=== PATIENT | female | born 1945 | race Caucasian/White ===

== ENCOUNTER 2021-11-29 18:37 | Emergency (ER) | payer MEDICARE, SELFPAY ==
--- NOTE | ~2021-11-29 | CT_ITS ---
EXAMINATION: CT abdomen pelvis w con DATE: 11/29/2021 21:28 INDICATION: Left lower quadrant abdominal pain. TECHNIQUE: Computed tomography (CT) of the abdomen and pelvis was performed with 100 mL Omnipaque-350 intravenous contrast. Automated exposure control and iterative reconstruction technique were employe d. The dose-length product was 605.67 mGy-cm. COMPARISON: 02/16/2019 FINDINGS: Minimal atelectasis at the lingula. Heart size is normal. No pericardial or pleural effusion. Focal h epatic steatosis at the ligamentum teres. Subcentimeter low-attenuation cyst in the left hepatic lobe . There are few scattered hepatic and splenic calcific lesions consistent with old granulomatous dise ase. Multiple calcified gallstones in the dependent aspect of the otherwise normal-appearing gallblad nuha. Pancreas, bilateral adrenal glands and right kidney are normal. Couple stones at an inferior hitesh yx of the left kidney, the larger measuring 7 x 2 mm. There is mild colonic diverticulosis with a bud cending and sigmoid colon predominance. Prominent inflammatory stranding surrounding a diverticulum a t the junction of the descending and sigmoid colon consistent with diverticulitis. No abscess or free intraperitoneal gas or fluid. Small bowel and appendix are normal. Bladder, anteverted uterus and bi lateral adnexa are unremarkable. No pathologically enlarged abdominal or pelvic lymphadenopathy. Mode rate to severe spondylosis in the lumbar and lower thoracic spine. IMPRESSION: 1. Radiographically uncomplicated diverticulitis at the junction of the descending and sigmoid colon. 2. Cholelithiasis. 3. Nephrolithiasis the lower pole of the left kidney. Reviewed, dictated and finalized at location A. PAK MACHINE OPERATOR IMPRESSION: 1. Radiographically uncomplicated diverticulitis at the junction of the descend ing and sigmoid colon. 2. Cholelithiasis. 3. Nephrolithiasis the lower pole of the left kidney.
[2021-11-29 18:49] VITALS: BP 207/85; PULSE 98; RESP 14; TEMP 36.7; O2SAT 100
[2021-11-29 19:10] LABS: Basophils Percent Auto 0.4 % (0.2-1.2); Eosinophils Absolute Auto 0.1 K/mm3 (0-0.3); Eosinophils Percent Auto 0.8 % (0-4.4); Hematocrit 37.6 % (37.0-47.0); Hemoglobin 12.5 g/dL (12.0-15.0); Immature Granulocyte Absolute 0.03 K/mm3 (0.00-0.031); Immature Granulocyte Percent A 0.3 % (0-0.5); Lymphocytes Percent Auto 26.8 % (18.3-44.2); Mean Corpuscular HGB Conc 33.2 g/dl (32-36); Mean Corpuscular Hemoglobin 30.1 pg (26-34); Mean Corpuscular Volume 90.6 fl (80-100); Mean Platelet Volume 9.1 fl (7.4-10.4); Monocytes Absolute Auto 0.8 K/mm3 (0.1-0.6); Monocytes Percent Auto 8.5 % (2.6-8.5); Neutrophils Absolute Auto 5.7 K/mm3 (1.3-6.7); Neutrophils Percent Auto 63.2 % (45.5-73.1); Platelet Count Result 391 k/mm3 (150-375); Red Blood Count 4.15 M/mm3 (4.2-5.4); Red Cell Distribution Width 11.2 % (11.5-14.5)
[2021-11-29 19:21] LABS: Alanine Aminotransferase 21 U/L (4-35); Albumin Level 4.7 g/dL (3.5-5.1); Alkaline Phosphatase 94 U/L (38-126); Anion Gap 10 mmol/L (8-16); Aspartate Amino Transferase 32 U/L (14-36); Bilirubin,Total 0.8 mg/dL (0.2-1.3); Blood Urea Nitrogen 11 mg/dL (7-17); Calcium 9.1 mg/dL (8.4-10.2); Carbon Dioxide 27 mmol/L (22-30); Chloride 97 mmol/L (98-107); Estimated CRCL calculation 53 ml/min; Estimated Glomerular Filt Rate > 60; Glucose 129 mg/dL (65-110); Lipase 96 U/L (23-300); Sodium 134 mmol/L (137-145)
[2021-11-29 20:07] VITALS: BP 187/79; PULSE 88; RESP 20; TEMP 36.3; O2SAT 100
--- NOTE | 2021-11-29 20:38 | ED.ABDPAIN ---
HPI - Abdominal Pain General Chief Complaint: Abdominal Pain Stated Complaint: abdominal pain Time Seen by Provider: 11/29/21 20:19 Source: patient, RN notes reviewed and old records reviewed Mode of arrival: ambulatory Limitations: no limitations History of Present Illness HPI narrative: This is a 76 year old female with history of diverticulitis who presents for evaluation of left lower abdominal pain. Patient developed left lower abdominal pain on November 10 and she continued to have constant pain until yesterday. Her pain has completely resolved today. She has placed on her self on liquid diet for 3 weeks to address her pain. She denies nausea, vomiting, fever, chills, back pain, or urinary symptoms. She decided to come to ER today because she wanted to make sure she does not have diverticulitis. Related Data Allergies Allergy/AdvReac Type Severity Reaction Status Date / Time diphenhydramine Allergy Intermediate Unknown Verified 11/29/21 20:13 Penicillins Allergy Intermediate Unknown Verified 11/29/21 20:13 ampicillin Allergy Unknown Unknown Verified 11/29/21 20:13 codeine Allergy Unknown Unknown Verified 11/29/21 20:13 Quinolones Allergy Unknown Unknown Verified 11/29/21 20:13 Sulfa (Sulfonamide Allergy Unknown Unknown Verified 11/29/21 20:13 Antibiotics) EVERYTHING Allergy Intermediate Unknown Uncoded 11/29/21 20:13 CONTROL PILL Allergy Unknown Unknown Uncoded 11/29/21 20:13 Review of Systems Review of Systems: All systems reviewed & are unremarkable except as noted in HPI and below PMFSH Past Medical History Medical History (Updated 11/30/21 @ 00:00 by Nakul Larson) Diverticulitis Surgical History Surgical History (Updated 11/29/21 @ 20:42 by Meliza Farias MD) History of tonsillectomy Social History Social History (Updated 11/29/21 @ 20:42 by Meliza Farias MD) Smoking status: Never smoker Exam Const: General: no acute distress and alert Orientation/consciousness: patient oriented x3 Eyes: EOM: EOMs intact bilaterally Chest: Chest palpation & inspection: normal inspection of the chest Resp: Effort & Inspection: normal respiratory effort and no retractions Auscultation: clear to auscultation bilaterally Cardio: Rate: regular rate Rhythm: regular rhythm Heart sounds: no murmurs GI: GI Palp: Yes Soft to palpation, Yes Tenderness to palpation present (GI) (TTP LLQ) and No Guarding due to palpation present (GI) Auscultation: normal bowel sounds : General: Yes no CVA tenderness Skin: General skin exam: normal color Neuro: General: patient oriented x3 and moves all extremities Extrem: General: normal to inspection Psych: Mental Status: mental status grossly normal Affect: normal affect Course Reevaluation(s) Reevaluation #1: I have discussed with patient CT findings of diverticulitis. I also stressed to her to get follow up regarding her hypertension. On review of records, her BP has been elevated for a long time. She states it is only elevated when she is at hospital. I stressed she still needs to follow up . We also reviewed antibiotics. She reports allergic reaction to penicillin, ampicillin and levaquin. She will be placed on flagyl Date: 11/29/21 Time: 22:03 Vital Signs Vital signs: Vital Signs Temperature 98.1 F 11/29/21 18:49 Pulse Rate 98 11/29/21 18:49 Respiratory Rate 14 11/29/21 18:49 Blood Pressure 207/85 H 11/29/21 18:49 Pulse Oximetry 100 11/29/21 18:49 Temperature 97.9 F 11/29/21 22:18 Pulse Rate 76 11/29/21 22:18 Respiratory Rate 16 11/29/21 22:18 Blood Pressure 132/76 11/29/21 22:18 Pulse Oximetry 98 11/29/21 22:18 MDM - Abdominal Pain Medical Records Attestation: I reviewed the patient's medical records. Lab Data Attestation: I reviewed the patient's lab results. Result diagrams: 11/29/21 19:01 11/29/21 19:01 Labs: Lab Results 11/29/21
[2021-11-29 20:52] LABS: Add Urine Microscopic? YES; Appearance Urine Clear (Clear); Bacteria Urine Trace /hpf; Bilirubin Urine Negative (Negative); Blood Urine 1+ (Negative); Color Urine Straw (Yellow); Glucose Urine UA Negative (Negative); Ketones Urine 1+ mg/dL (Negative); Leukocyte Esterase Ur Trace LEU/UL (Negative); Mucus Urine Rare /lpf; Nitrate Urine Negative (Negative); Protein Urine Negative (Negative); RBC Urine 0-2 /hpf (0-2); Specific Grav Ur 1.003 (1.001-1.035); Squamous Epithelial Cell Urine Occasional /hpf (Few); Urobilinogen Urine Negative mg/dL (<2.0); WBC Urine 0-3 /hpf
[2021-11-29] MEDS: metroNIDAZOLE 250 MG TABLET 500 MG PO (22:09)
[2021-11-29 22:18] VITALS: BP 132/76; PULSE 76; RESP 16; TEMP 36.6; O2SAT 98
== END 2021-11-29 22:21 | disposition home or self-care (01) ==
PROVIDERS: Emergency Medicine; Emergency Provider General Practice; PCP Nurse Practitioner Family
DX: K57.32 Diverticulitis of large intestine without perforation or abscess without bleeding (principal); K80.20 Calculus of gallbladder without cholecystitis without obstruction; N20.0 Calculus of kidney
CPT/HCPCS: 36415; 74177; 80053; 81001; 83690; 85025; 99284; A9270; Q9967

== ENCOUNTER 2022-05-14 10:28 | Inpatient (IN) | payer MEDICARE, SELFPAY ==
[2022-05-14] VITALS (63 sets, daily range): BP systolic 90–180; BP diastolic 54–99; PULSE 76–103; RESP 15–36; TEMP 36.7–38; O2SAT 42–100; BMI 35.6
--- NOTE | ~2022-05-14 | XR_ITS ---
EXAMINATION: XR chest 1V portable DATE: 05/15/2022 05:51 INDICATION: Pulmonary edema. Cardiomegaly. TECHNIQUE: A single frontal view of the chest was obtained. COMPARISON: Chest single view 05/14/2022 FINDINGS: There are airspace opacities in all lung zones bilaterally. No pleural effusion or pneumoth orax. The heart size is normal. IMPRESSION: 1. Improved diffuse lung disease, likely moderate pulmonary edema. Pneumonia is less likely. Reviewed, dictated and finalized at location A.
--- NOTE | ~2022-05-14 | XR_ITS ---
EXAMINATION: XR chest 1V portable DATE: 05/16/2022 05:43 INDICATION: Pulmonary edema. TECHNIQUE: A single frontal view of the chest was obtained. COMPARISON: Chest single view 05/15/2022 FINDINGS: There is a diffuse interstitial pattern in the lungs, consistent with mild pulmonary edema. No pleural effusion or pneumothorax. The heart size is normal. IMPRESSION: 1. Improved mild pulmonary edema. Reviewed, dictated and finalized at location A.
--- NOTE | ~2022-05-14 | CT_ITS ---
EXAMINATION: CT abdomen pelvis wo con DATE: 05/16/2022 10:45 INDICATION: Abdominal pain. Kidney stones. Urinary tract infection and fever. TECHNIQUE: Computed tomography (CT) of the abdomen and pelvis was performed without intravenous contr ast. Automated exposure control and iterative reconstruction technique were employed. The dose-length product was 958.51 mGy-cm. COMPARISON: 11/29/2021 FINDINGS: Very small bilateral posterior layering pleural effusions. Patchy groundglass opacities in the depend ent aspect of the bilateral lower lobes and lingula which could represent atelectasis, mild pulmonary edema, aspiration or pneumonia. Heart size is normal. Small pericardial effusion. Aortic valve calci fication. A few small calcified nodules in the liver and spleen consistent with old granulomatous dis ease. Calcified gallstones as well as vicariously excreted contrast versus sludge in the dependent as pect of the otherwise normal gallbladder. Pancreas, bilateral adrenal glands and right kidney are nor mal. 6 x 2 mm stone versus cluster of stones in an inferior calyx of the left kidney. No hydronephros is or stones seen along the course of ureters. Luong catheter within the decompressed bladder. Anteve rted uterus and bilateral adnexa are unremarkable. There is moderate colonic diverticulosis with a si gmoid predominance. There is no adjacent inflammatory change to suggest diverticulitis. Small bowel a nd appendix are normal. No free intraperitoneal gas or fluid. No pathologically enlarged abdominal or pelvic lymphadenopathy. Moderate to severe lumbar and lower thoracic spondylosis. IMPRESSION: 1. Unchanged nonobstructing 6 x 2 mm stone/cluster of stones in an inferior calyx of the left kidney. No ureteral stones or hydronephrosis. 2. Cholelithiasis. 3. Diverticulosis. Reviewed, dictated and finalized at location A. IMPRESSION: 1. Unchanged nonobstructing 6 x 2 mm stone/cluster of stones in an inferior hitesh yx of the left kidney. No ureteral stones or hydronephrosis. 2. Cholelithiasis. 3. Diverticulosis.
--- NOTE | ~2022-05-14 | US_ITS ---
EXAMINATION: US abdomen limited DATE: 05/15/2022 16:32 INDICATION: Elevated liver function tests TECHNIQUE: Multiple grayscale and Doppler ultrasound images of the abdomen were obtained. COMPARISON: CT dated 11/29/2021 FINDINGS: The pancreatic head and body are normal in appearance. The pancreatic tail is not visualized. Visual ized proximal to mid aorta and inferior vena cava are normal. Liver has normal echogenicity and conto ur, with a smooth surface. No liver lesion identified. No intrahepatic biliary duct dilation suspecte d. Portal venous flow was seen in the hepatopetal, normal direction and has normal Doppler waveform. Several echogenic and shadowing gallstones along the dependent wall of the otherwise normal gallbladd er. The common bile duct measures 8 mm diameter which is mildly dilated for age and which appears new since the prior CT at which time the common bile duct measures 11 mm in maximal diameter. Sonographi c Graves sign was reported as negative by the waste oil pumper although patient was reportedly on analgesi cs which could result in a false negative interpretation. Visualized portion of the right kidney demo nstrates normal contour and echogenicity with no hydronephrosis. IMPRESSION: 1. Cholelithiasis with no evident gallbladder wall thickening and with negative sonographic Graves si gn although sensitivity for the latter is decreased as the patient was reportedly been taking analges ics. If there is clinical concern for acute cholecystitis could consider HIDA scan for further evalua tion. 2. Common bile duct is mildly dilated for age measuring 8 mm which appears new since the prior CT but without associated intrahepatic biliary ductal dilation. Could consider MRCP to assess for a nonvisu alized distal obstructing stone. Reviewed, dictated and finalized at location A. IMPRESSION: 1. Cholelithiasis with no evident gallbladder wall thickening and with negative sonographic Graves sign although sensitivity for the latter is decreased as th e patient was reportedly been taking analgesics. If there is clinical concern f or acute cholecystitis could consider HIDA scan for further evaluation. 2. Common bile duct is mildly dilated for age measuring 8 mm which appears new since the prior CT but without associated intrahepatic biliary ductal dilation. Could consider MRCP to assess for a nonvisualized distal obstructing stone.
--- NOTE | ~2022-05-14 | XR_ITS ---
EXAMINATION: XR chest 1V portable DATE: 05/14/2022 11:16 INDICATION: Chest pain. TECHNIQUE: A single frontal view of the chest was obtained. COMPARISON: Chest 2 views 11/28/15, CT abdomen and pelvis 11/29/2021 FINDINGS: There is mild atelectasis in right lower lung zone and left mid and lower lung zones. No pl eural effusion or pneumothorax. The heart size is normal. IMPRESSION: 1. Mild atelectasis in right lower lung zone and left mid and lower lung zones. Reviewed, dictated and finalized at location A.
--- NOTE | ~2022-05-14 | US_ITS ---
EXAMINATION: US venous doppler [facility] DATE: 05/17/2022 11:33 INDICATION: TECHNIQUE: Grayscale ultrasound images without and with compression and Doppler ultrasound images of the bilateral lower extremity veins were obtained. COMPARISON: None. FINDINGS: The visualized portions of right common femoral vein, profunda (deep) femoral vein, femoral vein, pop liteal vein, posterior tibial veins, peroneal veins, gastrocnemius vein, soleal vein and greater saph enous vein outflow are patent. The visualized portions of left common femoral vein, profunda femoral vein, femoral vein, popliteal v ein, posterior tibial veins, peroneal veins, gastrocnemius vein, soleal vein and greater saphenous ve in outflow are patent. IMPRESSION: 1. No deep venous thrombosis in either lower limb. Reviewed, dictated and finalized at location A.
--- NOTE | ~2022-05-14 | XR_ITS ---
EXAMINATION: XR abdomen/kub 1V INDICATION: Possible foreign body TECHNIQUE: Supine views of the abdomen were obtained on 2 radiographs. COMPARISON: None FINDINGS: No radiopaque foreign body is identified. Cholelithiasis is noted. The bowel gas pattern is unremarkable. IMPRESSION: 1. No radiopaque foreign body identified. Reviewed, dictated and finalized at location B.
--- NOTE | ~2022-05-14 | XR_ITS ---
EXAMINATION: XR chest 1V portable DATE: 05/14/2022 13:19 INDICATION: Respiratory distress. TECHNIQUE: A single frontal view of the chest was obtained. COMPARISON: Chest single view at 11:12 AM FINDINGS: There are airspace opacities in all lung zones bilaterally. Andreea B-lines are noted. No pl eural effusion or pneumothorax. The heart size is normal. IMPRESSION: 1. Worsened diffuse lung disease, likely moderate pulmonary edema. Pneumonia is less likely given the symmetry and short interval change. Reviewed, dictated and finalized at location A.
--- NOTE | 2022-05-14 10:59 | ECG_ITS ---
Measurements Intervals [place] Rate: 102 P: 49 [place]: 134 QRS: -31 QRSD: 92 T: 79 QT: 348 QTc: 455 Interpretive Statements SINUS TACHYCARDIA POSSIBLE LEFT ATRIAL ENLARGEMENT [-0.1mV P WAVE IN V1/V2] MARKED LEFT AXIS DEVIATION [QRS AXIS < -30] PATTERN CONSISTENT WITH PULMONARY DISEASE POSSIBLE LEFT VENTRICULAR HYPERTROPHY [VOLTAGE CRITERIA PLUS LAE OR QRS WIDENING] MARKED ST ELEVATION, CONSIDER LATERAL INJURY [MARKED ST ELEVATION W/O NORMALLY INFLECTED T WAVE IN I/aVL/V5/V6] ACUTE MD NO PREVIOUS ECG AVAILABLE FOR COMPARISON Electronically Signed On 05-14-2022 15:13:36 CDT by Maddy Vargas M.D.
[2022-05-14 11:07] LABS: Basophils Absolute Auto 0.1 K/mm3 (0.0-0.1); Basophils Percent Auto 0.4 % (0.2-1.2); Eosinophils Percent Auto 0.2 % (0-4.4); Hematocrit 41.8 % (37.0-47.0); Hemoglobin 13.8 g/dL (12.0-15.0); Immature Granulocyte Absolute 0.05 K/mm3 (0.00-0.031); Immature Granulocyte Percent A 0.4 % (0-0.5); Lymphocytes Absolute Auto 2.05 K/mm3 (0.9-3.2); Mean Corpuscular Hemoglobin 30.7 pg (26-34); Mean Corpuscular Volume 93.1 fl (80-100); Mean Platelet Volume 9.9 fl (7.4-10.4); Monocytes Absolute Auto 0.6 K/mm3 (0.1-0.6); Monocytes Percent Auto 4.2 % (2.6-8.5); Neutrophils Absolute Auto 10.9 K/mm3 (1.3-6.7); Neutrophils Percent Auto 79.8 % (45.5-73.1); Platelet Count Result 370 k/mm3 (150-375); Red Blood Count 4.49 M/mm3 (4.2-5.4); Red Cell Distribution Width 11.6 % (11.5-14.5); White Blood Count 13.7 K/mm3 (4.5-10.0)
[2022-05-14 11:19] LABS: Prothrombin Time 13.1 Seconds (11.1-14.7)
[2022-05-14 11:20] LABS: Partial Thromboplastin Time 27.9 SECONDS (22.3-36.8)
--- NOTE | 2022-05-14 11:21 | ED.CHESTPAIN ---
HPI - Chest Pain General Chief Complaint: Chest Pain Stated Complaint: FB GI? Source: patient and family Mode of arrival: ambulatory Limitations: no limitations History of Present Illness HPI narrative: 76 years old white female came from home with a chief complaint of chest pain that started 2 weeks ago gradually getting worse. Patient believes that she swallowed a bone 2 weeks ago and has been having dry heaves and vomiting since. Patient not on any medication at home, denies any history of diabetes, hypertension, hyperlipidemia or coronary artery disease. Related Data Allergies Allergy/AdvReac Type Severity Reaction Status Date / Time diphenhydramine Allergy Intermediate Unknown Verified 05/14/22 10:53 Penicillins Allergy Intermediate Unknown Verified 05/14/22 10:53 ampicillin Allergy Unknown Unknown Verified 05/14/22 10:53 codeine Allergy Unknown Unknown Verified 05/14/22 10:53 Quinolones Allergy Unknown Unknown Verified 05/14/22 10:53 Sulfa (Sulfonamide Allergy Unknown Unknown Verified 05/14/22 10:53 Antibiotics) EVERYTHING Allergy Intermediate Unknown Uncoded 05/14/22 10:53 CONTROL PILL Allergy Unknown Unknown Uncoded 05/14/22 10:53 Review of Systems Review of Systems: All systems reviewed & are unremarkable except as noted in HPI and below PMFSH Past Medical History Medical History Diverticulitis Surgical History Surgical History History of tonsillectomy Social History Social History Smoking status: Never smoker Exam Narrative: General appearance: Well-developed, well-nourished Skin:, diaphoretic, pale Head: Normocephalic, nontraumatic Eyes: Clear conjunctiva ENT: Oropharynx normal, ears normal, nose normal Neck: Supple, nontender Chest and respiratory: Airway patent, no respiratory distress, no accessory muscle use Heart: Regular rate/rhythm Abdomen: Soft, nontender, no organomegaly, quiet bowel sounds Vascular: Normal peripheral pulses, normal capillary refill. Musculoskeletal: Normal range of motion, nontender back Neurologic: Alert and oriented ?3, TRANSMISSIONS SYSTEMS OPERATOR is normal as tested, no gross motor deficit Course Reevaluation(s) Reevaluation #1: Dr. cadena, mash tub cooker operator on-call, was notified, Date: 05/14/22 Time: 11:27 Vital Signs Vital signs: Vital Signs Temperature 36.7 C 05/14/22 10:33 Pulse Rate 100 05/14/22 10:33 Respiratory Rate 20 05/14/22 10:33 Blood Pressure 180/95 H 05/14/22 10:33 Pulse Oximetry 100 05/14/22 10:33 Oxygen Delivery Room Air 05/14/22 10:33 Temperature 36.7 C 05/14/22 10:33 Pulse Rate 100 05/14/22 10:33 Respiratory Rate 20 05/14/22 10:33 Blood Pressure 180/95 H 05/14/22 10:33 Pulse Oximetry 94 05/14/22 11:12 Oxygen Delivery Room Air 05/14/22 11:12 MDM - Chest Pain Lab Data Result diagrams: 05/14/22 11:01 05/14/22 11:01 Labs: Lab Results 05/14/22 05/14/22 05/14/22 Range/Units 11:01 11:01 11:01 WBC 13.7 H (4.5-10.0) K/mm3 RBC 4.49 (4.2-5.4) M/mm3 Hgb 13.8 (12.0-15.0) g/dL Hct 41.8 (37.0-47.0) % MCV 93.1 (80-100) fl MCH 30.7 (26-34) pg MCHC 33.0 (32-36) g/dl RDW 11.6 (11.5-14.5) % Plt Count 370 (150-375) k/mm3 MPV 9.9 (7.4-10.4) fl Immature Gran % (Auto) 0.4 (0-0.5) % Neut % (Auto) 79.8 H (45.5-73.1) % Lymph % (Auto) 15.0 L (18.3-44.2) % Mcmullen % (Auto) 4.2 (2.6-8.5) % Eos % (Auto) 0.2 (0-4.4) % Baso % (Auto) 0.4 (0.2-1.2) % Lymph # (Auto) 2.05 (0.9-3.2) K/mm3 Mon
[2022-05-14] MEDS: METOPROLOL TARTRATE INJ 5 MG/5 ML VIAL IV PUSH ×2 (11:29→11:47)
[2022-05-14] MEDS: MORPHINE SULFATE (*CRX) 4 MG/ML INJ IV PUSH (11:33)
[2022-05-14 11:35] LABS: Alanine Aminotransferase 27 U/L (6-35); Albumin Level 4.7 g/dL (3.5-5.1); Alkaline Phosphatase 89 U/L (38-126); Anion Gap 18 mmol/L (8-16); Aspartate Amino Transferase 37 U/L (14-36); Bilirubin,Total 0.6 mg/dL (0.2-1.3); Blood Urea Nitrogen 11 mg/dL (7-17); Calcium 9.6 mg/dL (8.4-10.2); Carbon Dioxide 22 mmol/L (22-30); Chloride 97 mmol/L (98-107); Estimated Glomerular Filt Rate > 60; Glucose 291 mg/dL (65-110); Lipase 70 U/L (23-300); Potassium 3.3 mmol/L (3.4-5.0); Sodium 137 mmol/L (137-145)
--- NOTE | 2022-05-14 11:56 | PC.NURSE ---
Pt stated has been having chest pain on and off for the last 2 weeks, but today was the worse. Pt said has been feeling SOB last night too.
--- NOTE | 2022-05-14 11:57 | PM.IMHP ---
H&P: HPI History of Present Illness Date/Time: 05/14/22 11:57 Chief Complaint: Chest pain, off and on x2 weeks, worsening chest pain today Narrative: 76-year-old female with no known prior cardiac history. Patient presented to [facility] Emergency Room on 05/14/2022 with worsening chest pain for last 2 weeks. She states that she was in her usual state of health about 2 weeks ago when she started having intermittent episodes of chest pain associated with shortness of breath, dizziness without syncope. Today, her chest pain got worse and she was brought to the hospital. EKG on my personal evaluation showed sinus tachycardia, heart rate 102 beats per minute, ST segment elevation in leads V2 to V4, 1 and aVL with reciprocal ST depression. Cardiac catheterization lab was activated for primary PCI. At the time of evaluation, patient had ongoing chest pain. Review of Systems Review of Systems: General: Negative for fever, chills, fatigue Psychological: Negative for anxiety, depression Ophthalmic: negative for loss of vision ENT: Negative for epistaxis, headaches Allergy and immunology: Negative for hives, nasal congestion Hematologic and lymphatic: Negative for overt bleeding problems Endocrine: Negative for hot flashes, palpitations Respiratory: Negative for cough, hemoptysis Cardiovascular: Positive for chest pain and shortness of breath for last 2 weeks, associated with lower extremity swelling Gastrointestinal: Negative for abdominal pain; positive for nausea Musculoskeletal: Negative for myalgia, joint pains Neurological: Negative for weakness Dermatological: Negative for rash, skin discoloration PMFSH Past Medical History Medical History Diverticulitis Surgical History Surgical History History of tonsillectomy Social History Social History (Updated 05/14/22 @ 12:01 by Anselmo Kingston MD) Smoking status: Never smoker Alcohol intake: never Substance use: never Living arrangements: with family Additional living arrangements comments: her mother lives with her Meds Home Medications and Allergies Home Medications Medication Instructions Recorded Confirmed Type metronidazole 500 mg tablet 500 mg PO Q8H 10 days #30 tabs 11/29/21 Rx Allergies Allergy/AdvReac Type Severity Reaction Status Date / Time diphenhydramine Allergy Intermediate Unknown Verified 05/14/22 10:53 Penicillins Allergy Intermediate Unknown Verified 05/14/22 10:53 ampicillin Allergy Unknown Unknown Verified 05/14/22 10:53 codeine Allergy Unknown Unknown Verified 05/14/22 10:53 Quinolones Allergy Unknown Unknown Verified 05/14/22 10:53 Sulfa (Sulfonamide Allergy Unknown Unknown Verified 05/14/22 10:53 Antibiotics) EVERYTHING Allergy Intermediate Unknown Uncoded 05/14/22 10:53 CONTROL PILL Allergy Unknown Unknown Uncoded 05/14/22 10:53 Vital Signs Vital Signs - 24 hr 05/14/22 10:33 05/14/22 11:12 05/14/22 11:12 Temperature 36.7 C Pulse Rate 100 Respiratory Rate 20 Blood Pressure 180/95 H Pulse Oximetry 100 94 94 Oxygen Delivery Room Air Room Air Room Air 05/14/22 11:29 05/14/22 11:47 05/14/22 11:48 Temperature Pulse Rate 103 H 76 78 Respiratory Rate 22 H Blood Pressure 139/99 H Pulse Oximetry 92 Oxygen Delivery Exam Narrative: PHYSICAL EXAMINATION: GENERAL: anxious, pale looking female, alert, mild distress due to ongoing chest pain MENTAL STATUS: anxious EYES: Extraocular movements intact, no pallor EARS: External ears appear normal, hearing grossly normal NOSE: Normal and patent, no discharge MOUTH: Mucous membranes moist, tongue normal NECK: Supple, no JVD CHEST: Good respiratory effort, clear to auscultation HEART: Normal rate, regular rhythm, normal S1 and S2, S4 gallop ABDOMEN: Soft, nontender NEUROLOGICAL: Alert, oriented, raul
[2022-05-14 11:58] LABS: Cholesterol 271 mg/dL (0-200); HDL Direct 62 mg/dL; Triglycerides 137 mg/dL (<150)
[2022-05-14 12:00] LABS: Troponin I 0.533 ng/mL (0.000-0.034)
[2022-05-14 12:09] LABS: LDL Cholesterol Direct 164 mg/dL
--- NOTE | 2022-05-14 12:59 | WPDCARDPROC ---
Cardiac Cath Procedure Note Date of procedure:: 05/14/22 Performing physician:: Anselmo Kingston MD Procedure Procedure performed:: EMERGENT CARDIAC CATHETERIZATION AND PERCUTANEOUS CORONARY INTERVENTION REPORT DATE OF PROCEDURE: 05/14/2022 INDICATION FOR PROCEDURE: Acute coronary syndrome -anterolateral ST-elevation myocardial infarction late presentation with ongoing chest pain BRIEF CLINICAL HISTORY:76-year-old female with no known prior cardiac history. ? Patient presented to [facility] Emergency Room on 05/14/2022 with worsening chest pain for last 2 weeks.? She states that she was in her usual state of health about 2 weeks ago when she started having intermittent episodes of chest pain associated with shortness of breath, dizziness without syncope.? Today, her chest pain got worse and she was brought to the hospital. ? EKG showed sinus tachycardia, heart rate 102 beats per minute, ST segment elevation in leads V2 to V4, 1 and aVL with reciprocal ST depression.? Cardiac catheterization lab was activated for primary PCI.? PROCEDURES PERFORMED: 1. Emergent Left heart catheterization- Selective left and right coronary angiogram; left ventriculogram and hemodynamic assessment 2. Primary percutaneous coronary intervention- a) balloon angioplasty and stenting of totally occluded proximal LAD using a 3.25 x 23 mm Xience everolimus eluting stent; b) intravascular ultrasound (IVUS) of LAD 3. Deployment of Mynx hemostatic device 4. Moderate sedation-CPT code 81510 MODERATE SEDATION: Midazolam 1 mg; fentanyl 25 mcg. Start time 1205 , Stop time 1244 ; Total gjof-bj-soop time 39 minutes; Tootie Adams RN was trained observer for moderate sedation. ACCESS SITE: Right common femoral artery PROCEDURE NOTE: patient was emergently brought to catheterization lab and prepped and draped in a usual sterile manner. After local anesthesia with lidocaine, right common femoral artery access was taken with micropuncture needle followed by insertion of a 6 Guinean sheath. Selective left and right coronary angiogram was performed using 6 [place] 3.5 CLS guide catheter and JR4 catheters respectively. Orthogonal views were taken. . After completion of PCI, 5 [place] pigtail catheter was advanced in the LV cavity and was flushed with normal saline. LV pressure measurement was performed. After this, left ventriculogram was performed. The catheter was flushed again, and gradient across the aortic valve was measured on the pullback of the catheter. FINDINGS: LEFT MAIN CORONARY: the left main coronary is a medium caliber, short vessel without significant focal stenosis. The vessel gives rise to LAD, high om/LCX branches. LEFT ANTERIOR DESCENDING ARTERY: The LAD is a medium caliber vessel with 100% thrombotic occlusion in the proximal segment right after its origin from the left main coronary artery. There was KAYLAH 0 flow before PCI. After PCI, KAYLAH 2 flow was restored. There is mild plaque in the mid segment and vessel tapers in the distal segment to a small caliber vessel. Diagonal branch is small to medium caliber vessel. LEFT CIRCUMFLEX ARTERY: A medium to large caliber vessel, gives rise to high OM branch which is medium caliber vessel with mild 20-40% stenosis in the proximal segment. OM2 branch is a small-caliber vessel, OM 3 branch is a medium caliber vessel. RIGHT CORONARY ARTERY: A medium caliber vessel with minor plaque in the proximal segment. Gives rise to small to medium caliber tortuous PDA and PLV branches. LEFT VENTRICULOGRAM: Severe LV systolic dysfunction with segmental wall motion abnormality; anterior wall is akinetic and apical segments are akinetic to dyskinetic. Ejection fraction approximately 10-15%. LVEDP severely elevated at 40 mmHg. HEMODYNAMIC ASSESSMENT: Opening pressure 153/85 mmHg , closing pressure 148/85 mmHg , LVEDP 40 mmHg; no significant gradient across aortic valve on the pullback of pigtail j carlos
--- NOTE | 2022-05-14 13:02 | WPDCNINT ---
Assessment and Plan Assessment and plan (1) ST elevation (STEMI) myocardial infarction: Code(s): I21.3 - ST elevation (STEMI) myocardial infarction of unspecified site Status: Acute Assessment and Plan: Patient presented with chest pain which was intermittently ongoing for 2 weeks, worsened on the day of admission, patient was found to have ST-elevation OR in the ER - EKG in the ER showed sinus tachycardia with ST elevation in leads V2 to V4, reciprocal ST depression and 1 and aVL. -Patient was taken to the cardiac cathode washer where she was found to have 100% thrombotic occlusion of proximal LAD which was probably the culprit vessel status post PTCA/PCI with CALLI x1 to proximal LAD. LV EDP was 40 mmHg, patient was given Lasix in the cathode washer, EF of 10-15%. Patient was started on nitroglycerin infusion -systolic blood pressures remain elevated, discuss with Cardiology, will start nitroprusside infusion and maintain SBP around 100 mmHg -patient started on atorvastatin, spironolactone, losartan, ticagrelor per cardiology (2) Pulmonary edema: Code(s): J81.1 - Chronic pulmonary edema Status: Acute Assessment and Plan: Pulmonary edema likely related to cardiomyopathy with EF of 10%, systolic hypertension -Lasix administered -Luong catheter placed -chest x-ray showed diffuse pulmonary infiltrates likely moderate pulmonary edema -patient placed on BiPAP with improvement in her O2 sats will continue (3) Ischemic cardiomyopathy: Code(s): I25.5 - Ischemic cardiomyopathy Status: Acute Assessment and Plan: LVEDP was 40 mmHg, patient was given Lasix in the cathode washer and in the ICU upon arrival -EF of 10-15% -continue nitroglycerin infusion -patient will be started on nitroprusside infusion and will titrate nitroglycerin infusion to off -cardiology following the patient Plan Discuss with Cardiology at length Code Status: Full code Critical Care Time Spent: 44 minutes Due to a high probability of clinically significant, life threatening deterioration, the patient required my highest level of preparedness to intervene emergently and I personally spent this critical care time directly and personally managing the patient. This critical care time included obtaining a history; examining the patient; pulse oximetry; ordering and review of studies; arranging urgent treatment with development of a management plan; evaluation of patient's response to treatment; frequent reassessment; and discussions with other providers. It was exclusive of separately billable procedures and treating other patients and teaching time. Please see Assessment and Plan section and the rest of the note for further information on patient assessment and treatment News Camera Operator Consult Note Consult date: 05/14/22 Reason for consult: Chest pain, STEMI status post emergent cardiac catheterization with PTCA/PCI with stent x1 to 100% occluded LAD, elevated LVEDP HPI: Shyla Wallis is a 76 year old female with past medical history of diverticulitis, no cardiac history presented the ED on 05/14/2022 with complains of intermittent chest pain ongoing for 2 weeks and has been gradually worsening, on the day of admission patient had increasing chest pain, shortness of breath, dizziness without syncope. EKG in the ER showed sinus tachycardia with ST elevation in leads V2 to V4, reciprocal ST depression and 1 and aVL. Patient was taken to the cardiac cathode washer where she was found to have 100% thrombotic occlusion of proximal LAD which was probably the culprit vessel status post PTCA/PCI with CALLI x1 to proximal LAD. LV EDP was 40 mmHg, patient was given Lasix in the cathode washer, EF of 10-15%. Patient was started on nitroglycerin infusion. Patient was transferred to the ICU for further management Patient seen and examined the ICU upon arrival and was hypoxic with O2 sats in the 40s on the monitor, patient was given additional Lasix 40 mg IV push, placed on
--- NOTE | 2022-05-14 13:10 | ADMGEN ---
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 Patient/family oriented to hospital policies and general routines including ID bracelet, bed and alarms, visiting hours, pain management, procedures, bathroom and other care routines, personal items, smoking policy, room service/diet, and visiting hours. On arrival to ICU patient moaning, coughing, on 6LNC stating she was having trouble breathing. Placed patient on our monitor with saturations in the 40's. Dr. Serra at bedside and Dr. Kingston called to come up to room stat. Bipap placed on patient. Information on how to activate the Rapid Response Team has been discussed. Patient/Family are encouraged to report perceived risks to care and to ask questions if they do not understand what they are told or what they should do.
[2022-05-14] MEDS: NITROGLYCERIN/D5W 200 MCG/ML 50 MG/250 ML BTL 6 MG IV CONT (13:15)
[2022-05-14] MEDS: FUROSEMIDE INJ 40 MG/4 ML VIAL IV PUSH (13:35)
[2022-05-14] MEDS: SODIUM NITROPRUSSIDE IV SOLN 50 MG in DEXTROSE 5% IN WATER 250 ML 9 MG IV CONT (13:41)
--- NOTE | 2022-05-14 14:30 | PC.NURSE ---
1104 EKG completed and showed to ER dr Pacheco 1105 STEMI alert overhead 1114 4x ASA 81 given 1114 Heparin bolus given 5000units 1114 Zofran 8mg given
--- NOTE | 2022-05-14 19:35 | PC.NURSE ---
Patient arrived to ICU 10 grunting/moaning and kramer. patient placed on monitor and oxygen saturation of 42% with good wave form. Started bagging patient, Dr. jackson at bedside verbal order of 40mg IVP Lasix, chest xray, Luong placed and bipap. RT at bedside. Oxygen Saturation improved and patient was placed on bipap. Oxygen saturation remained at 90%. It was reported that before transport patient oxygen saturation was 86% and traveled to ICU on 4L. Will continue to monitor patient per ICU protocol.
--- NOTE | 2022-05-14 20:12 | ECG_ITS ---
Measurements Intervals [place] Rate: 92 P: 10 [place]: 128 QRS: -2 QRSD: 83 T: 88 QT: 372 QTc: 460 Interpretive Statements SINUS RHYTHM BASELINE ARTIFACT ANTEROSEPTAL MYOCARDIAL INFARCTION RECENT ABNORMAL ECG COMPARED TO ECG 05/14/2022 11:04:02 ST ELEVATIONS LESS PROMINENT Electronically Signed On 05-15-2022 16:13:26 CDT by Sriram Reddy M.D.
[2022-05-14] MEDS: TICAGRELOR 90 MG TABLET PO (21:09)
[2022-05-14 21:24] LABS: Magnesium 1.8 mg/dL (1.6-2.3)
[2022-05-14] MEDS: POTASSIUM CHLORIDE INJ 40 MEQ in SODIUM CHLORIDE 0.9% IV 500 ML 130 MEQ IVPB (22:37)
[2022-05-14] MEDS: SODIUM NITROPRUSSIDE IV SOLN 50 MG in DEXTROSE 5% IN WATER 250 ML 27 MG IV CONT (22:38)
[2022-05-15] VITALS (30 sets, daily range): BP systolic 82–139; BP diastolic 56–101; PULSE 87–119; RESP 18–28; TEMP 37.6–38; O2SAT 92–100
--- NOTE | 2022-05-15 | ECHO_ITS ---
Patient Info Name: Shyla Wallis Age: 76 years : 1945 Gender: Female Ht: 60 in Wt: 220 lbs BSA: 2.12 m2 HR: 106 bpm BP: 130 / 61 mmHg Heart Rhythm: Sinus Rhythm Technical Quality: Fair Exam Date: 05/15/2022 7:30 AM Exam Location: [facility] Patient Status: Inpatient Admit Date: 05/14/2022 Staff Ordering Physician: Anselmo Kingston MD Instructional Materials Director: Elza Lira RDCS Attending Provider: Anselmo Kingston MD Exam Type: CA echo dop color flow w con Study Info Indications - MD, CHECK LV FX R/O LV THROMBUS Complete two-dimensional, color flow and Doppler transthoracic echocardiogram is performed. Summary 1. Complete two-dimensional, color flow and Doppler transthoracic echocardiogram is performed. 2. Left ventricular chamber dimension is normal. 3. Left ventricular systolic function is moderately reduced, estimated at 40-45%. There is akinesis of the apex, apical septal, apical anterior, and anteroseptal brantley. 4. There is no increased left ventricular wall thickness. 5. The left ventricular diastolic function is grade I diastolic dysfunction. 6. There is no thrombus visualized in the left ventricle. 7. There is trace tricuspid valve regurgitation. 8. No pulmonary hypertension, estimated pulmonary arterial systolic pressure is 18 mmHg. 9. There is trace mitral valve regurgitation. 10. There is no aortic valve stenosis. Left Ventricle Left ventricular chamber dimension is normal. Left ventricular systolic function is moderately reduced, estimated at 40-45%. There is akinesis of the apex, apical septal, apical anterior, and anteroseptal brantley. There is no increased left ventricular wall thickness. The left ventricular diastolic function is grade I diastolic dysfunction. There is no thrombus visualized in the left ventricle. Right Ventricle Right ventricular chamber dimension is normal. Right ventricular systolic function is normal. Left Atria Left atrial chamber dimension is normal. Right Atria Right atrial chamber dimension is normal. Aortic Valve The aortic valve is not well visualized. There is no aortic valve stenosis. There is no aortic valve regurgitation. Pulmonic Valve The pulmonic valve is not well visualized. Mitral Valve The mitral valve has thickened leaflets. There is trace mitral valve regurgitation. The mitral valve annulus is mildly calcified. Tricuspid Valve The tricuspid valve leaflets are not well visualized. There is trace tricuspid valve regurgitation. No pulmonary hypertension, estimated pulmonary arterial systolic pressure is 18 mmHg. Pericardium/Pleural The pericardium appears normal. There is small pericardial effusion. Inferior Vena Cava Dilated inferior vena cava with <50% collapse upon inspiration consistent with elevated right atrial pressure, 10 mmHg. Aorta The aortic root size at the sinus of Valsalva is normal. There is mild aortic atherosclerosis. Left Ventricular Outflow Tract Name Value Normal LVOT 2D LVOT Diameter 1.97 cm LVOT Doppler LVOT Peak Gradient 2 mmHg LVOT Mean Gradient
[2022-05-15] MEDS: KCL 20 MEQ/SW 100 ML 100 ML 50 MEQ IVPB (02:28)
[2022-05-15 05:17] LABS: Basophils Percent Auto 0.1 % (0.2-1.2); Hemoglobin 13.2 g/dL (12.0-15.0); Immature Granulocyte Absolute 0.07 K/mm3 (0.00-0.031); Immature Granulocyte Percent A 0.4 % (0-0.5); Lymphocytes Absolute Auto 1.45 K/mm3 (0.9-3.2); Lymphocytes Percent Auto 8.3 % (18.3-44.2); Mean Corpuscular HGB Conc 32.2 g/dl (32-36); Mean Corpuscular Hemoglobin 30.8 pg (26-34); Mean Corpuscular Volume 95.8 fl (80-100); Mean Platelet Volume 9.9 fl (7.4-10.4); Monocytes Absolute Auto 1.3 K/mm3 (0.1-0.6); Monocytes Percent Auto 7.5 % (2.6-8.5); Neutrophils Absolute Auto 14.7 K/mm3 (1.3-6.7); Neutrophils Percent Auto 83.7 % (45.5-73.1); Platelet Count Result 308 k/mm3 (150-375); Red Blood Count 4.28 M/mm3 (4.2-5.4); Red Cell Distribution Width 11.9 % (11.5-14.5); White Blood Count 17.6 K/mm3 (4.5-10.0)
[2022-05-15 05:30] LABS: Alanine Aminotransferase 110 U/L (6-35); Alkaline Phosphatase 74 U/L (38-126); Anion Gap 6 mmol/L (8-16); Aspartate Amino Transferase 547 U/L (14-36); Bilirubin,Total 0.8 mg/dL (0.2-1.3); Blood Urea Nitrogen 16 mg/dL (7-17); Calcium 9.1 mg/dL (8.4-10.2); Carbon Dioxide 28 mmol/L (22-30); Chloride 100 mmol/L (98-107); Estimated CRCL calculation 51 ml/min; Estimated Glomerular Filt Rate > 60; Glucose 198 mg/dL (65-110); Magnesium 1.9 mg/dL (1.6-2.3); Phosphorus 3.9 mg/dL (2.5-4.5); Potassium 4.6 mmol/L (3.4-5.0); Sodium 134 mmol/L (137-145)
--- NOTE | 2022-05-15 08:00 | ECG_ITS ---
Measurements Intervals [place] Rate: 103 P: 47 MN: 129 QRS: -15 QRSD: 93 T: 90 QT: 340 QTc: 445 Interpretive Statements SINUS TACHYCARDIA ANTERIOR MYOCARDIAL INFARCTION, OF INDETERMINATE AGE ABNORMAL ECG COMPARED TO ECG 05/14/2022 19:20:21 HEART RATE HAS INCREASED Electronically Signed On 05-15-2022 16:26:04 CDT by Sriram Reddy M.D.
[2022-05-15] MEDS: PERFLUTREN LIPID MICROSPHERES 1.5 ML VIAL DILUTED TO 10 ML TOTAL VOLUME IV PUSH (08:10)
--- NOTE | 2022-05-15 08:10 | IVDEFINITY ---
Prior to administration of IV Definity the patient was educated on the risks and benefits of the imaging enhancing agent including potential adverse side effects. The patient verbalized understanding. Allergies were verified. No exclusion criteria were identified and at least one of the following inclusion criteria were met: 1) physician request, 2) patient technically difficult to image (per the [place] [employer] guidelines of two or more segments not discernable within the apical view), or 3) questionable left ventricular function. ?
[2022-05-15] MEDS: TICAGRELOR 90 MG TABLET PO ×2 (08:30→20:19)
[2022-05-15] MEDS: ASPIRIN 81 MG CHEWABLE TABLET PO (08:30)
[2022-05-15] MEDS: LOSARTAN POTASSIUM 12.5 MG TABLET PO (08:30)
[2022-05-15] MEDS: SPIRONOLACTONE 25 MG TABLET PO (08:30)
[2022-05-15] MEDS: FUROSEMIDE INJ 40 MG/4 ML VIAL IV PUSH (08:35)
--- NOTE | 2022-05-15 09:53 | PM.PNCARD ---
Progress Note: A&P Assessment and Plan (1) Ischemic cardiomyopathy: Code(s): I25.5 - Ischemic cardiomyopathy Status: Acute (2) ST elevation (STEMI) myocardial infarction: Code(s): I21.3 - ST elevation (STEMI) myocardial infarction of unspecified site Status: Acute Plan 76-year-old patient with anterior wall myocardial infarction very late presentation with very low left ventricular ejection fraction. Troponin level on admission was only modestly elevated no subsequent troponins have been ordered for some reason. She is still in some failure on physical exam. We will start low-dose carvedilol at this time and she needs to stay in the ICU. I will draw a troponin level this morning for assessment of that. Long discussion with the patient about her limited prognosis and that it is likely unrealistic for her to continue to be discharged home and care for her 97-year-old mother. Also spoke to patient about the need for a a life vest prior to discharge. Expect at least several more days in the hospital given the size of this infarction Darinel Lucero MD [facility] Subjective Date/time seen: Date of service:05/15/22 09:53 Interval history: Follow-up visit in this 76-year-old woman with: Acute anterior wall myocardial infarction with very late presentation. Patient underwent successful PCI of the proximal occlusion of her LAD at the time of admission. She however because of late presentation has a very poor LV ejection fraction and as such a very guarded prognosis. She has been placed on but dual anti-platelet therapy and losartan. Her atorvastatin has been held because of significant rise in transaminases this morning. She is no longer hypotensive and is in a sinus tachycardia. Exam Const: General: comfortable and no acute distress Other: Very pleasant woman appearing her stated age comfortable wearing nasal cannula oxygen head of the bed elevated approximately 45? HENMT: Mouth: Yes moist mucous membranes Eyes: Sclera: sclerae normal Pupils: Equal, round and reactive pupils present Neck: Neck: supple Other: no carotid bruits Resp: Effort & Inspection: normal respiratory effort Other: pulmonary rales bilaterally at the bases Cardio: Rate: tachycardic Rhythm: regular rhythm Other: no murmur, S3 is audible GI: GI Palp: Yes Soft to palpation Auscultation: normal bowel sounds Skin: General skin exam: normal color Neuro: Other: alert and oriented x3 Extrem: Other: warm adequate pulses Objective Data Vital Signs Vital Signs: Vital Signs - 24 hr 05/14/22 10:33 05/14/22 11:12 05/14/22 11:12 Temperature 36.7 C Pulse Rate 100 Respiratory Rate 20 Blood Pressure 180/95 H Pulse Oximetry 100 94 94 Oxygen Delivery Room Air Room Air Room Air Oxygen Flow Rate Fraction of Inspired Oxygen 05/14/22 11:29 05/14/22 11:47 05/14/22 11:48 Temperature Pulse Rate 103 H 76 78 Respiratory Rate 22 H Blood Pressure 139/99 H Pulse Oximetry 92 Oxygen Delivery Oxygen Flow Rate Fraction of Inspired Oxygen 05/14/22 13:10 05/14/22 14:14 05/14/22 14:00 Temperature Pulse Rate 96 83 Respiratory Rate 36 H Blood Pressure 130/87 Pulse Oximetry 90 Oxygen Delivery BiPAP Oxygen Flow Rate Fraction of Inspired Oxygen 05/14/22 13:41 05/14/22 13:15 05/14/22 13:55 Temperature 37.2 C Pulse Rate 86 91 Respiratory Rate 23 H Blood Pressure 149/97 H 139/91 H 144/97 H Pulse Oximetry Oxygen Delivery Oxygen Flow Rate Fraction of Inspired Oxygen 05/14/22 13:15 05/14/22 13:16 05/14/22 13:30 Temperature 37.2 C Pulse Rate 93 92 88 Respiratory Rate 23 H 30 H 28 H Blood Pressure 139/91 H Pulse Oximetry 92 Oxygen Delivery Oxygen Flow Rate Fraction of Inspired Oxygen 05/14/22 13:31 05/14/22 13:45 05/14/22 13:46 Temperature 37.2 C 37.3 C 37.3 C Pulse Rate 89 89 88 Respiratory Rate 29 H
[2022-05-15 10:07] LABS: Troponin I > 80.000 ng/mL (0.000-0.034)
[2022-05-15] MEDS: carvediloL 3.125 MG TABLET PO ×2 (11:08→20:20)
[2022-05-15 14:15] LABS: Appearance Urine Clear (Clear); Bilirubin Urine Negative (Negative); Blood Urine 3+ (Negative); Color Urine Yellow (Yellow); Glucose Urine UA Negative (Negative); Ketones Urine Negative (Negative); Leukocyte Esterase Ur 2+ LEU/UL (Negative); Nitrate Urine Negative (Negative); Protein Urine 1+ mg/dL (Negative); Specific Grav Ur 1.015 (1.001-1.035); Urobilinogen Urine 0.2 mg/dL (<2.0)
[2022-05-15 14:23] LABS: Mucus Urine Rare /lpf; RBC Urine >75 /hpf (0-2); Squamous Epithelial Cell Urine Rare /hpf (Few); WBC Urine 51-75 /hpf
[2022-05-15 14:25] LABS: Add Urine Microscopic? YES
--- NOTE | 2022-05-15 15:47 | WPDINTPN ---
Progress Note: A&P Assessment and Plan (1) ST elevation (STEMI) myocardial infarction: Code(s): I21.3 - ST elevation (STEMI) myocardial infarction of unspecified site Status: Acute Assessment and Plan: Patient presented with chest pain which was intermittently ongoing for 2 weeks, worsened on the day of admission, patient was found to have ST-elevation AL in the ER - EKG in the ER showed sinus tachycardia with ST elevation in leads V2 to V4, reciprocal ST depression and 1 and aVL. -Patient was taken to the cardiac lab tester where she was found to have 100% thrombotic occlusion of proximal LAD which was probably the culprit vessel status post PTCA/PCI with CALLI x1 to proximal LAD. LV EDP was 40 mmHg, patient was given Lasix in the lab tester, EF of 10-15%. -05/14: patient was started on nitroprusside infusion for hypertension along with nitroglycerin infusion overnight nitroprusside infusion was discontinued by Cardiology -continue, spironolactone, losartan, ticagrelor, Coreg per cardiology -atorvastatin held due to elevated liver enzymes (2) Pulmonary edema: Code(s): J81.1 - Chronic pulmonary edema Status: Acute Assessment and Plan: Pulmonary edema likely related to cardiomyopathy with EF of 10%, systolic hypertension -chest x-ray 04/2022: improvement in pulmonary edema -repeated Lasix again today -patient on nasal cannula and tolerating well with good O2 sats (3) Ischemic cardiomyopathy: Code(s): I25.5 - Ischemic cardiomyopathy Status: Acute Assessment and Plan: LVEDP was 40 mmHg, patient was given Lasix in the lab tester and in the ICU upon arrival -EF of 10-15% -continue nitroglycerin infusion -continue Coreg, losartan per Cardiology (4) Elevated LFTs: Code(s): R79.89 - Other specified abnormal findings of blood chemistry Status: Acute Assessment and Plan: Could be related to STEMI, decreased perfusion -will check right upper quadrant ultrasound and hepatitis panel Plan Discuss with Cardiology Code Status: Full code Critical Care Time Spent: 34 minutes Due to a high probability of clinically significant, life threatening deterioration, the patient required my highest level of preparedness to intervene emergently and I personally spent this critical care time directly and personally managing the patient. This critical care time included obtaining a history; examining the patient; pulse oximetry; ordering and review of studies; arranging urgent treatment with development of a management plan; evaluation of patient's response to treatment; frequent reassessment; and discussions with other providers. It was exclusive of separately billable procedures and treating other patients and teaching time. Please see Assessment and Plan section and the rest of the note for further information on patient assessment and treatment Subjective Date/time seen: 05/15/22 15:47 Interval history: Reason for consult:Chest pain, STEMI status post emergent cardiac catheterization with PTCA/PCI with stent x1 to 100% occluded LAD, elevated LVEDP, cardiomyopathy with the EF of 10-15%, pulmonary edema requiring BiPAP 05/15/2022: Patient seen examined the ICU this morning, remains on 3 L nasal cannula with complains of mild shortness of breath. Patient did have good urine output in response to diuretics. Denies any chest pain, shortness. Nitroprusside infusion was discontinued overnight, patient remains on nitroglycerin infusion per Cardiology. Patient is afebrile, LFTs trending up Review of Systems Review of Systems: All systems reviewed & are unremarkable except as noted in HPI and below Exam Narrative: General: In respiratory distress HEENT:? Pupils are equal and reactive, sclera is clear Neck:? Supple, positive JVD Respiratory:? Coarse breath sounds bilaterally, decreased at bases, adequate air Cardiac:? S1-S2 is normal, sinus rhythm Abdomen:? Soft, nontender, nondisten
[2022-05-15 17:13] LABS: Hepatitis B Surface Antigen Negative (Negative)
[2022-05-15 17:19] LABS: HAV RESULT Negative (Negative); Hepatitis B Core IgM Result Negative (Negative)
[2022-05-15 17:30] LABS: Hepatitis C Virus Antibody Negative (Negative)
[2022-05-16] VITALS (18 sets, daily range): BP systolic 98–116; BP diastolic 62–78; PULSE 84–100; RESP 16–85; TEMP 36–38; O2SAT 92–100
[2022-05-16 05:11] LABS: Basophils Percent Auto 0.1 % (0.2-1.2); Eosinophils Percent Auto 0.1 % (0-4.4); Hematocrit 34.9 % (37.0-47.0); Hemoglobin 11.2 g/dL (12.0-15.0); Immature Granulocyte Absolute 0.08 K/mm3 (0.00-0.031); Immature Granulocyte Percent A 0.6 % (0-0.5); Lymphocytes Absolute Auto 1.49 K/mm3 (0.9-3.2); Lymphocytes Percent Auto 10.5 % (18.3-44.2); Mean Corpuscular HGB Conc 32.1 g/dl (32-36); Mean Corpuscular Hemoglobin 30.2 pg (26-34); Mean Corpuscular Volume 94.1 fl (80-100); Mean Platelet Volume 10.4 fl (7.4-10.4); Monocytes Absolute Auto 0.8 K/mm3 (0.1-0.6); Monocytes Percent Auto 5.8 % (2.6-8.5); Neutrophils Absolute Auto 11.8 K/mm3 (1.3-6.7); Neutrophils Percent Auto 82.9 % (45.5-73.1); Platelet Count Result 258 k/mm3 (150-375); Red Blood Count 3.71 M/mm3 (4.2-5.4); Red Cell Distribution Width 11.7 % (11.5-14.5); White Blood Count 14.2 K/mm3 (4.5-10.0)
[2022-05-16 05:23] LABS: Lactic Acid Reflex 1.2 mmol/L (0.7-2.0)
[2022-05-16 05:25] LABS: Alanine Aminotransferase 59 U/L (6-35); Albumin Level 3.4 g/dL (3.5-5.1); Alkaline Phosphatase 60 U/L (38-126); Anion Gap 1 mmol/L (8-16); Aspartate Amino Transferase 164 U/L (14-36); Bilirubin,Total 0.8 mg/dL (0.2-1.3); Blood Urea Nitrogen 20 mg/dL (7-17); Calcium 8.5 mg/dL (8.4-10.2); Carbon Dioxide 34 mmol/L (22-30); Chloride 96 mmol/L (98-107); Estimated CRCL calculation 50 ml/min; Estimated Glomerular Filt Rate > 60; Glucose 176 mg/dL (65-110); Phosphorus 3.1 mg/dL (2.5-4.5); Potassium 3.5 mmol/L (3.4-5.0); Sodium 131 mmol/L (137-145)
[2022-05-16] MEDS: POTASSIUM CHLORIDE 20 MEQ TABLET 40 MEQ PO (09:24)
[2022-05-16] MEDS: ASPIRIN 81 MG CHEWABLE TABLET PO (09:24)
[2022-05-16] MEDS: SPIRONOLACTONE 25 MG TABLET PO (09:25)
[2022-05-16] MEDS: LOSARTAN POTASSIUM 12.5 MG TABLET PO (09:25)
[2022-05-16] MEDS: carvediloL 3.125 MG TABLET PO ×2 (09:25→21:06)
[2022-05-16] MEDS: TICAGRELOR 90 MG TABLET PO (09:25)
[2022-05-16 09:57] LABS: Lipase 50 U/L (23-300)
[2022-05-16] MEDS: AZTREONAM 1 GM in DEXTROSE 5% IN WATER 50 ML 100 ML IVPB ×3 (10:06→21:07)
--- NOTE | 2022-05-16 10:57 | PM.PNCARD ---
Progress Note: A&P Assessment and Plan (1) ST elevation (STEMI) myocardial infarction: Code(s): I21.3 - ST elevation (STEMI) myocardial infarction of unspecified site Status: Acute Assessment and Plan: 76-year-old female with no known prior cardiac history, presented to the hospital with worsening chest pain for about 2 weeks with EKG showing anterolateral ST-elevation NH. Late clinical presentation with ongoing chest pain. Patient emergently taken to the analytical lab technician which showed 100% thrombotic occlusion of proximal LAD, underwent PCI/CALLI x1 (IVUS guided) with voodoo of KAYLAH 2 flow. Left ventriculogram showed severe LV systolic dysfunction with akinetic anterior wall and dyskinetic apex, ejection fraction about 10-15% on LV gram with severely elevated LVEDP. Follow-up echocardiogram showed significant improvement in the LV systolic function with reported LVEF 40-45% with segmental wall motion abnormality; no LV thrombus. - patient has made remarkable recovery - continue dual antiplatelet therapy with aspirin and ticagrelor. - continue Low-dose beta-tian, up titrate as tolerated; ARB, aldosterone antagonist. - statin on hold. May resume statin at a lower dose tomorrow if liver enzymes are trending downwards. Check CMP in the morning. There is compelling indication for statin use. - With echocardiogram showing significant improvement in LVEF, patient would not qualify for LifeVest at discharge. - Transfer to IMU later in the day - spoke with transportation economics teacher. Patient has been experiencing abdominal discomfort. She has history of nephrolithiasis and her UA is suggestive of UTI. Renal function normal at present. Pulp Maker planning to do CT scan of the abdomen. Patient has been initiated on antibiotics. Subjective Date/time seen: 05/16/22 10:57 Interval history: Date of service 05/16/2022- patient is feeling better today. Her chest pain has resolved. Denies shortness of breath. At the time of evaluation, she was eating breakfast. She reported abdominal discomfort when she coughs. Exam Narrative: PHYSICAL EXAMINATION: GENERAL: Alert, oriented, no acute distress MENTAL STATUS: affect appropriate to mood EYES: Extraocular movements intact, no pallor EARS: External ears appear normal, hearing grossly normal NOSE: Normal and patent, no discharge MOUTH: Mucous membranes moist, tongue normal NECK: Supple, no JVD CHEST: diminished breath sounds HEART: Normal rate, regular rhythm, normal S1 and S2, no audible murmurs ABDOMEN: Soft, nontender NEUROLOGICAL: Alert, oriented, normal speech, no gross motor deficits MUSCULOSKELETAL: No major deformity, no amputation EXTREMITIES: No pedal edema, Right groin access site unremarkable SKIN: no rash on the exposed area, no cyanosis PSYCHIATRIC: Normal mood, appropriate affect Objective Data Vital Signs Vital Signs: Vital Signs - 24 hr 05/15/22 11:00 05/15/22 11:08 05/15/22 11:12 Temperature Pulse Rate 119 H 117 H Respiratory Rate Blood Pressure 101/58 L 101/58 L Pulse Oximetry Oxygen Delivery Oxygen Flow Rate 05/15/22 12:00 05/15/22 12:00 05/15/22 12:00 Temperature 37.7 C H Pulse Rate 107 H 107 H 107 H Respiratory Rate 20 20 Blood Pressure 102/67 Pulse Oximetry 92 92 Oxygen Delivery Room Air Oxygen Flow Rate 05/15/22 14:00 05/15/22 14:00 05/15/22 12:30 Temperature Pulse Rate 99 103 H 106 H Respiratory Rate Blood Pressure 82/65 L 95/56 L Pulse Oximetry Oxygen Delivery Oxygen Flow Rate 05/15/22 14:46 05/15/22 16:00 05/15/22 16:00 Temperature 37.9 C H 37.9 C H Pulse Rate 99 96 96 Respiratory Rate 20 22 H Blood Pressure 101/61 111/74 Pulse Oximetry 93 93 Oxygen Delivery Oxygen Flow Rate 05/15/22 16:00 05/15/22 18:00 05/15/22 20:20 Temperature Pulse Rate 96 96 94 Respiratory Rate 22 H Blood Pressure Pulse Oximetry 93 Oxygen Delivery Narciso
--- NOTE | 2022-05-16 13:30 | WPDINTPN ---
Progress Note: A&P Assessment and Plan (1) ST elevation (STEMI) myocardial infarction: Code(s): I21.3 - ST elevation (STEMI) myocardial infarction of unspecified site Status: Acute Assessment and Plan: Patient presented with chest pain which was intermittently ongoing for 2 weeks, worsened on the day of admission, patient was found to have ST-elevation AZ in the ER - EKG in the ER showed sinus tachycardia with ST elevation in leads V2 to V4, reciprocal ST depression and 1 and aVL. -Patient was taken to the cardiac laboratory apparatus glass blower where she was found to have 100% thrombotic occlusion of proximal LAD which was probably the culprit vessel status post PTCA/PCI with CALLI x1 to proximal LAD. LV EDP was 40 mmHg, patient was given Lasix in the laboratory apparatus glass blower, EF of 10-15%. -05/14: patient was started on nitroprusside infusion for hypertension along with nitroglycerin infusion. Later nitroprusside infusion was discontinued by Cardiology -DC nitroglycerin infusion -continue aspirin spironolactone, losartan, ticagrelor, Coreg per cardiology -atorvastatin held due to elevated liver enzymes -repeat echocardiogram done today and shows improvement in AF (2) Pulmonary edema: Code(s): J81.1 - Chronic pulmonary edema Status: Acute Assessment and Plan: Pulmonary edema likely related to cardiomyopathy with EF of 10%, systolic hypertension -chest x-ray 04/2022: improvement in pulmonary edema - Hold further Lasix today as patient shows signs of contraction alkalosis on her labs -patient on nasal cannula and tolerating well with good O2 sats (3) Ischemic cardiomyopathy: Code(s): I25.5 - Ischemic cardiomyopathy Status: Acute Assessment and Plan: LVEDP was 40 mmHg, patient was given Lasix in the laboratory apparatus glass blower and in the ICU upon arrival -EF of 10-15% -continue Coreg, losartan per Cardiology (4) Elevated LFTs: Code(s): R79.89 - Other specified abnormal findings of blood chemistry Status: Acute Assessment and Plan: Could be related to STEMI, decreased perfusion AST ALT are improving Hepatitis panel negative Right upper quadrant ultrasound IMPRESSION: 1. Cholelithiasis with no evident gallbladder wall thickening and with negative sonographic Graves sign although sensitivity for the latter is decreased as the patient was reportedly been taking analgesics. If there is clinical concern for acute cholecystitis could consider HIDA scan for further evaluation. 2. Common bile duct is mildly dilated for age measuring 8 mm which appears new since the prior CT but without associated intrahepatic biliary ductal dilation. Could consider MRCP to assess for a nonvisualized distal obstructing stone. (5) UTI (urinary tract infection): Code(s): N39.0 - Urinary tract infection, site not specified Status: Acute Assessment and Plan: UA suggests UTI and patient is febrile. Elevated WBC Urine culture sent and pending Ordered blood culture Patient is allergic to quinolones penicillin and cephalosporin Ordered aztreonam (6) Kidney stone on left side: Code(s): N20.0 - Calculus of kidney Status: Acute Assessment and Plan: CT scan was done and showed IMPRESSION: 1. Unchanged nonobstructing 6 x 2 mm stone/cluster of stones in an inferior calyx of the left kidney. No ureteral stones or hydronephrosis. (7) Electrolyte abnormality: Code(s): E87.8 - Other disorders of electrolyte and fluid balance, not elsewhere classified Status: Acute Assessment and Plan: Replace low potassium Plan DVT prophylaxis -Lovenox Discussed with Cardiology Incentive spirometer, PT OT Transfer out of ICU today Code Status: Full code Subjective Date/time seen: 05/16/22 13:30 Patient continues to be on low-dose nitroglycerin infusion. She was febrile overnight. She denies any new complaints and states he feels better as compared to yesterday. On review of system she does admit to wilma
--- NOTE | 2022-05-16 15:54 | PC.NURSE ---
This patient, Shyla Wallis, was transferred to [facility] via wheelchair without issue on 05/16/22 at 1545. Personal belongings sent with patient. Report given to NILA Gillespie. Appropriate documentation sent with patient.
[2022-05-16] MEDS: ONDANSETRON INJ 4 MG/2 ML VIAL IV PUSH (17:05)
[2022-05-17] VITALS (15 sets, daily range): BP systolic 99–120; BP diastolic 59–72; PULSE 75–91; RESP 16–22; TEMP 36.3–36.8; O2SAT 93–99
[2022-05-17 05:17] LABS: Hematocrit 34.2 % (37.0-47.0); Hemoglobin 10.9 g/dL (12.0-15.0); Mean Corpuscular HGB Conc 31.9 g/dl (32-36); Mean Corpuscular Hemoglobin 30.6 pg (26-34); Mean Corpuscular Volume 96.1 fl (80-100); Mean Platelet Volume 10.4 fl (7.4-10.4); Platelet Count Result 261 k/mm3 (150-375); Red Blood Count 3.56 M/mm3 (4.2-5.4); Red Cell Distribution Width 11.7 % (11.5-14.5); White Blood Count 11.6 K/mm3 (4.5-10.0)
[2022-05-17 05:33] LABS: Alanine Aminotransferase 42 U/L (6-35); Albumin Level 3.5 g/dL (3.5-5.1); Alkaline Phosphatase 65 U/L (38-126); Anion Gap 5 mmol/L (8-16); Aspartate Amino Transferase 87 U/L (14-36); Bilirubin,Total 0.7 mg/dL (0.2-1.3); Blood Urea Nitrogen 21 mg/dL (7-17); Calcium 8.1 mg/dL (8.4-10.2); Carbon Dioxide 30 mmol/L (22-30); Chloride 98 mmol/L (98-107); Estimated CRCL calculation 50 ml/min; Estimated Glomerular Filt Rate > 60; Glucose 167 mg/dL (65-110); Magnesium 2.2 mg/dL (1.6-2.3); Potassium 4.3 mmol/L (3.4-5.0); Sodium 133 mmol/L (137-145)
[2022-05-17] MEDS: AZTREONAM 1 GM in DEXTROSE 5% IN WATER 50 ML 100 ML IVPB ×3 (05:36→21:21)
--- NOTE | 2022-05-17 09:20 | PM.PNCARD ---
Progress Note: A&P Assessment and Plan (1) ST elevation (STEMI) myocardial infarction: Code(s): I21.3 - ST elevation (STEMI) myocardial infarction of unspecified site Status: Acute Assessment and Plan: 76-year-old female with no known prior cardiac history, presented to the hospital with worsening chest pain for about 2 weeks with EKG showing anterolateral ST-elevation MA. Late clinical presentation with ongoing chest pain. Patient emergently taken to the manager lab which showed 100% thrombotic occlusion of proximal LAD, underwent PCI/CALLI x1 (IVUS guided) with congregational of KAYLAH 2 flow. Left ventriculogram showed severe LV systolic dysfunction with akinetic anterior wall and dyskinetic apex, ejection fraction about 10-15% on LV gram with severely elevated LVEDP. Follow-up echocardiogram showed significant improvement in the LV systolic function with reported LVEF 40-45% with segmental wall motion abnormality; no LV thrombus. -continue aspirin 81 mg daily and clopidogrel 75 mg daily. -Ticagrelor was changed to Plavix due to cost beginning this morning Incidentally, patient was complaining of shortness of breath which is likely side effect but will continue to monitor after discontinuation. Counseled she must remain absolutely compliant without missing a single dose otherwise risking stent thrombosis and acute myocardial infarction and/or . -counseling post catheterization precautions, critical importance of following recommendations, follow-up. Cardiac rehabilitation referral as outpatient. -patient expresses inability to go home due to need to care for her elderly mother with dementia as she cannot care for her at this time. Care coordination to assist in this regard. -patient is well compensated at this time without evidence of decompensated heart failure. -patient must have physical therapy/occupational therapy evaluation prior to discharge to understand ambulatory abilities in any other needs she may have at home. (2) UTI (urinary tract infection): Code(s): N39.0 - Urinary tract infection, site not specified Status: Acute Assessment and Plan: Consult clinical Infectious Disease pharmacist for transition from IV aztreonam to oral equivalent antibiotic given patient's sulfa, quinolone and penicillin allergies. Cultures negative to date, however, and patient denies symptoms. (3) Ischemic cardiomyopathy: Code(s): I25.5 - Ischemic cardiomyopathy Status: Acute Assessment and Plan: EF initially noted 10-15% with marked improvement EF 40-45% with akinesis of the apex, apical septal, apical anterior, and anteroseptal brantley. Continue losartan, spironolactone, carvedilol for now. (4) Bilateral calf pain: Code(s): M79.661 - Pain in right lower leg; M79.662 - Pain in left lower leg Status: Acute Assessment and Plan: Lower extremity venous Doppler to assess for DVT. Clinically, this is less likely although given her recent acute myocardial infarction and hospitalization I feel it is prudent to exclude prior to discharge. She has 2+ bilateral dorsalis pedis pulses. Subjective Date/time seen: Date of service: 05/17/22 09:20 Follow-up for STEMI Interval history: Patient feels tired, a little nauseous at times. Appetite has been rather poor but trying to eat bland foods. No nausea. Denies chest discomfort but admits to some shortness of breath feels like she can not take a deep breath. Has not been out of bed much. Denies dysuria. No bleeding. Complains of bilateral calf pain since after admission she states she kept forgetting to mention to anyone. Notes mild back pain she attributes to lying in hospital bed. Patient states she has not ambulated much and does not feel comfortable going home yet. She states she cannot go home as she is unable to take care of her 97-year-old mother with dementia and she is still waiting to hear about respite care. Review of Systems Review
--- NOTE | 2022-05-17 09:35 | PC.NURSE ---
Cardiopulmonary Rehab Services flyer was given to patient.
--- NOTE | 2022-05-17 09:51 | PCOTNOTE ---
Attempted to see pt. for occupational therapy evaluation. Pt. requested we wait until after pt. receives doppler for DVT potential. Will follow.
--- NOTE | 2022-05-17 09:52 | IDPHARM ---
[facility] was consulted by Derrell Reddy regarding infectious diseases for Shyla Wallis. Shyla Wallis is a 76 year old F with concerns regarding her potential UTI. Background The patient is currently receiving Aztreonam for therapy. The patient's most relevant health condition is the STEMI for which she is admitted. Additionally, the patient's urine culture showed no growth. Assessment/Recommendation/Discussion Discussed with provider and provider will confirm if there is a likelihood for the presence of UTI symptoms and if further antibiotic therapy is needed. If asymptomatic bacteruria, guidelines would likely recommend to not treat the patient for this urinalysis. If treatment is needed, antibiotic choice is difficult due to her considerable allergy list including EVERYTHING . Discussed with the provider that this does limit options and that avoiding the specifically noted antibiotics (PCN/Ampicillin/Sulfa/Quinolones) in her list should be avoided. Perhaps can consider Fosfomycin 3g PO x1 outpatient which, despite her age, remains an option due to the other options being excluded due to her allergies. Thank you for the interesting consult. Figueroa Wilkins, PharmD Infectious Disease/Antimicrobial Stewardship Pharmacist 05/17/22; [id number]
[2022-05-17] MEDS: ASPIRIN 81 MG CHEWABLE TABLET PO (10:06)
[2022-05-17] MEDS: LOSARTAN POTASSIUM 12.5 MG TABLET PO (10:06)
[2022-05-17] MEDS: SPIRONOLACTONE 25 MG TABLET PO (10:06)
[2022-05-17] MEDS: carvediloL 3.125 MG TABLET PO ×2 (10:06→21:22)
[2022-05-17] MEDS: ENOXAPARIN 40 MG/0.4 ML SYRINGE SUB-Q (10:06)
[2022-05-17] MEDS: CLOPIDOGREL BISULFATE 75 MG TABLET PO (10:06)
[2022-05-18] VITALS (10 sets, daily range): BP systolic 100–111; BP diastolic 59–68; PULSE 74–86; RESP 16–24; TEMP 36.1–37.2; O2SAT 93–98
[2022-05-18 04:49] LABS: Hemoglobin 10.9 g/dL (12.0-15.0); Mean Corpuscular HGB Conc 32.1 g/dl (32-36); Mean Corpuscular Hemoglobin 30.3 pg (26-34); Mean Corpuscular Volume 94.4 fl (80-100); Mean Platelet Volume 10.4 fl (7.4-10.4); Platelet Count Result 261 k/mm3 (150-375); Red Cell Distribution Width 11.6 % (11.5-14.5); White Blood Count 11.2 K/mm3 (4.5-10.0)
[2022-05-18 04:58] LABS: Alanine Aminotransferase 34 U/L (6-35); Albumin Level 3.6 g/dL (3.5-5.1); Alkaline Phosphatase 66 U/L (38-126); Anion Gap 5 mmol/L (8-16); Aspartate Amino Transferase 63 U/L (14-36); Bilirubin,Total 0.7 mg/dL (0.2-1.3); Blood Urea Nitrogen 18 mg/dL (7-17); Calcium 8.1 mg/dL (8.4-10.2); Carbon Dioxide 30 mmol/L (22-30); Chloride 97 mmol/L (98-107); Estimated CRCL calculation 56 ml/min; Estimated Glomerular Filt Rate > 60; Glucose 156 mg/dL (65-110); Magnesium 2.2 mg/dL (1.6-2.3); Potassium 3.8 mmol/L (3.4-5.0); Sodium 132 mmol/L (137-145)
[2022-05-18] MEDS: AZTREONAM 1 GM in DEXTROSE 5% IN WATER 50 ML 100 ML IVPB (05:45)
[2022-05-18] MEDS: ENOXAPARIN 40 MG/0.4 ML SYRINGE SUB-Q (08:18)
[2022-05-18] MEDS: CLOPIDOGREL BISULFATE 75 MG TABLET PO (08:18)
[2022-05-18] MEDS: SPIRONOLACTONE 25 MG TABLET PO (08:18)
[2022-05-18] MEDS: carvediloL 3.125 MG TABLET PO (08:18)
[2022-05-18] MEDS: LOSARTAN POTASSIUM 12.5 MG TABLET PO (08:18)
[2022-05-18] MEDS: ASPIRIN 81 MG CHEWABLE TABLET PO (08:23)
--- NOTE | 2022-05-18 09:13 | PM.DS ---
DS: Admitting Diagnosis Discharge Date 05/18/2022 Admitting Diagnosis STEMI DS: Discharge Diagnosis Discharge Diagnosis (1) ST elevation (STEMI) myocardial infarction: Code(s): I21.3 - ST elevation (STEMI) myocardial infarction of unspecified site Status: Acute Assessment and Plan: 76-year-old female with no known prior cardiac history, presented to the hospital with worsening chest pain for about 2 weeks with EKG showing anterolateral ST-elevation SC. Late clinical presentation with ongoing chest pain. Patient emergently taken to the cath lab radiological technologist which showed 100% thrombotic occlusion of proximal LAD, underwent PCI/CALLI x1 (IVUS guided) with worship of KAYLAH 2 flow. Left ventriculogram showed severe LV systolic dysfunction with akinetic anterior wall and dyskinetic apex, ejection fraction about 10-15% on LV gram with severely elevated LVEDP. Follow-up echocardiogram showed significant improvement in the LV systolic function with reported LVEF 40-45% with segmental wall motion abnormality; no LV thrombus. Continue aspirin 81 mg daily and clopidogrel 75 mg daily. Ticagrelor was changed to Plavix due to cost Counseled she must remain absolutely compliant without missing a single dose otherwise risking stent thrombosis and acute myocardial infarction and/or . counseling post catheterization precautions, critical importance of following recommendations, follow-up. Cardiac rehabilitation referral sent. patient is well compensated at this time without evidence of decompensated heart failure. PT/OT evaluation complete Clinically she is appropriate for discharge home today. (2) UTI (urinary tract infection): Code(s): N39.0 - Urinary tract infection, site not specified Status: Acute Assessment and Plan: Cultures negative. She is asymptomatic. Rec'd IV Aztreonam for several days, no oral abx recommended as outpt. given that she is asymptomatic. (3) Ischemic cardiomyopathy: Code(s): I25.5 - Ischemic cardiomyopathy Status: Acute Assessment and Plan: EF initially noted 10-15% with marked improvement EF 40-45% with akinesis of the apex, apical septal, apical anterior, and anteroseptal brantley. Continue losartan, spironolactone, carvedilol for now. (4) Bilateral calf pain: Code(s): M79.661 - Pain in right lower leg; M79.662 - Pain in left lower leg Status: Acute Assessment and Plan: Lower extremity venous Doppler negative for DVT. DS: Summary Hospital Course Hospital Course: 76-year-old female with no known prior cardiac history, presented to the hospital with worsening chest pain for about 2 weeks with EKG showing anterolateral ST-elevation SC. Late clinical presentation with ongoing chest pain. Patient emergently taken to the cath lab radiological technologist which showed 100% thrombotic occlusion of proximal LAD, underwent PCI/CALLI x1 (IVUS guided) with worship of KAYLAH 2 flow. Left ventriculogram showed severe LV systolic dysfunction with akinetic anterior wall and dyskinetic apex, ejection fraction about 10-15% on LV gram with severely elevated LVEDP. Repeat echo showed improvement of LV function with EF 40-45%. Remained hospitalized for several days after STEMI because of her late presentation and resulting LV dysfunction. Recovered as expected and is stable for discharge home today. Time Spent with Patient Time attestation: Total time spent providing and/or coordinating discharge services: 56 minutes Exam Const: General: comfortable and no acute distress Other: Very pleasant woman appearing her stated age lying comfortably in bed. HENMT: Mouth: Yes moist mucous membranes Eyes: Sclera: sclerae normal Pupils: Equal, round and reactive pupils present Neck: Neck: supple Other: no carotid bruits Resp: Effort & Inspection: normal respiratory effort Auscultation: clear to auscultation bilaterally Cardio: Rate: regular rate and tachycardic Rhythm: regular rh
== END 2022-05-18 14:22 | disposition home or self-care (01) | DRG 247 ==
LOC: ANHED 10:48 → ANHICU 11:32 → ANHIMU 05-18 10:44 → ANHICU 05-19 09:48 → ANHIMU 05-19 09:48
PROVIDERS: Internal Medicine; Specialist; Admitting Provider Internal Medicine Cardiovascular Disease; Emergency Provider Emergency Medicine; PCP Nurse Practitioner Family; Visit Provider Nurse Practitioner
PROC: 4A023N7 Measurement of Cardiac Sampling and Pressure, Left Heart, Percutaneous Approach (ICD-10-PCS; CPT 93452; principal; 2022-05-14 11:40)
PROC: 027034Z Dilation of Coronary Artery, One Artery with Drug-eluting Intraluminal Device, Percutaneous Approach (ICD-10-PCS; 2022-05-14 11:40)
PROC: 027034Z Dilation of Coronary Artery, One Artery with Drug-eluting Intraluminal Device, Percutaneous Approach (ICD-10-PCS; 2022-05-14 11:40)
PROC: 027034Z Dilation of Coronary Artery, One Artery with Drug-eluting Intraluminal Device, Percutaneous Approach (ICD-10-PCS; 2022-05-14 11:40)
DX: I21.02 ST elevation (STEMI) myocardial infarction involving left anterior descending coronary artery (principal); I25.5 Ischemic cardiomyopathy; E87.8 Other disorders of electrolyte and fluid balance, not elsewhere classified; N20.0 Calculus of kidney; R79.89 Other specified abnormal findings of blood chemistry; M79.662 Pain in left lower leg; M79.661 Pain in right lower leg; Z88.0 Allergy status to penicillin; Z87.442 Personal history of urinary calculi
CPT/HCPCS: 36415; 71045; 74018; 74176; 76705; 80053; 80061; 80074; 81001; 83605; 83690; 83735; 84100; 84484; 85025; 85027; 85610; 85730; 86850; 86900; 86901; 87040; 87086; 92978; 93005; 93458; 93970; 94002; 94003; 96375; 96376; 97110; 97161; 97165; 97530; 97535; 99285; A9270; C1725; C1753; C1760; C1769; C1874; C1887; C1894; C8929; C9606; G0269; J0583; J1644; J1650; J1940; J2250; J2270; J2405; J3010; J3480; J7030; J7040; J7060; Q9957

== ENCOUNTER 2024-10-21 12:59 | Emergency (ER) | payer MEDICARE, SELFPAY ==
[2024-10-21 13:21] VITALS: BP 144/66; PULSE 80; RESP 16; TEMP 36.6; O2SAT 98
--- OUTSIDE RECORDS SUMMARY | 2024-10-21 13:34 | XMS_ITS | Continuity of Care Document ---
Author Organization [facility] Address [address] [facility] [address] [place] [address] Phone Care Team Providers Care Health Policy Nurse Name Role Phone Mayra Lorenzo Unavailable Unavailable Advance Directives Directive Yes / No Effective Date File Name No Information Encounters Encounter Description Practice Location Reason(s) For Visit Diagnoses Date Provider Providers Copied on Encounter [facility], [id number] [place] [address] [address], [place], [place], [id number], tel:[phone] [facility] No Information Sep-0 1-200 5 Maura Nunez. [address] [facility] , [address], [place], [address], [place]. tel:[phone] Family History Family Member Type Diagnosis Age At Onset No Information Payers Payer name Insurance type Covered green party ID Authoriza tion(s) No Information Social History Type Description Quantity Date Captured Comments Sex Female Smoking Status No Information Chief Complaint And Reason For Visit No Information Reason For Referral Reason For Referral No Information History Of Present Illness Encounter Date Complaint History Of Prese nt Illness No Information Functional Status Date Functional Assessmen t No Information Instructions Date Instruction Additional Infor mation No Information Assessments Type Assessment Date No Information Patient Care Teams Name Effective Dates (start - stop) Status Members No Information
--- NOTE | 2024-10-21 15:04 | ED.GENADULT ---
HPI - General Adult General Chief complaint: Extremity Injury, Upper <Mahnaz Cao January, MOBILE APPLICATION TESTER - Last Filed: 10/21/24 15:16> Stated complaint: splinters to right thumb? <Mahnaz Cao January, MOBILE APPLICATION TESTER - Last Filed: 10/21/24 15:16> Time Seen by Provider: 10/21/24 15:04 <Mahnaz Cao January, MOBILE APPLICATION TESTER - Last Filed: 10/21/24 15:16> Focused HPI: Selvin Wallis is a 79 y/o female who presents with reports of shoveling 3 days ago and got splinters in the right thumb area, she got them out and then last night her thumb became swollen and more painful and she is not sure when her last TDap was. She states she would like someone to numb up her thumb and cut out a splinter she believes is there / area is closed appears to be blister two small areas on thumb - GENERAL: Well-appearing, well-nourished, and in no acute distress. HEAD: Normocephalic, atraumatic. CHEST: Clear to auscultation. ?No respiratory distress. HEART: Regular rate and rhythm.? NEURO: ?Alert and oriented x3. Patient screened in triage and initial orders placed.? ?Additional care and disposition to be based upon?diagnostic testing and treatment. <Mahnaz Cao January, - Last Filed: 10/21/24 15:16> Focused HPI: Selvin Wallis is a 79 y/o female who presents with reports of shoveling 3 days ago and got splinters in the right thumb area, she got them out and then last night her thumb became swollen and more painful and she is not sure when her last TDap was. She states she would like someone to numb up her thumb and cut out a splinter she believes the area is closed and appears to be a blister, two small areas on thumb. GENERAL: Well-appearing, well-nourished, and in no acute distress. HEAD: Normocephalic, atraumatic. CHEST: Clear to auscultation. ?No respiratory distress. HEART: Regular rate and rhythm.? NEURO: ?Alert and oriented x3. Patient screened in triage and initial orders placed.? ?Additional care and disposition to be based upon?diagnostic testing and treatment. <Farzana Mcclure APRN - Last Filed: 10/21/24 19:00> History of Present Illness HPI narrative: I agree with the assessment and documentation performed by Tammy Chou NP. <Farzana Mcclure APRN - Last Filed: 10/21/24 19:00> Related Data Allergies/adverse reactions: Allergies Allergy/AdvReac Type Severity Reaction Status Date / Time diphenhydramine Allergy Intermediate Unknown Verified 10/21/24 13:00 Penicillins Allergy Intermediate Unknown Verified 10/21/24 13:00 ampicillin Allergy Unknown Unknown Verified 10/21/24 13:00 codeine Allergy Unknown Unknown Verified 10/21/24 13:00 Quinolones Allergy Unknown Unknown Verified 10/21/24 13:00 Sulfa (Sulfonamide Allergy Unknown Unknown Verified 10/21/24 13:00 Antibiotics) EVERYTHING Allergy Intermediate Unknown Uncoded 10/21/24 13:00 CONTROL PILL Allergy Unknown Unknown Uncoded 10/21/24 13:00 <Mahnaz Chou APRN - Last Filed: 10/21/24 15:16> Review of Systems Review of Systems: All systems reviewed & are unremarkable except as noted in HPI and below <Farzana Mcclure APRN - Last Filed: 10/21/24 19:00> PMFSH Past Medical History Medical History: Medical History Diverticulitis <Mahnza Chou APRN - Last Filed: 10/21/24 15:16> Surgical History Surgical History: Surgical History History of tonsillectomy <Mahnaz Chou APRN - Last Filed: 10/21/24 15:16> Social History Social History: Social History Smoking status: Never smoker Alcohol intake: never Substance use: never Substance use type: does not use Living arrangements: with family Additional living arrangements comments: her mother lives with her Spiritual care concerns: No <Mahnaz Chou APRN - Last Filed: 10/21/24 15:16> Exam Narrative: GENERAL: Well appearing, well-nourished, non-toxic, in no acute distress. HEAD: Normocephalic, atraumatic. NECK: Supple. No adenopathy, no masses. RESPIRATORY: Airway patent, respirations nonlabored. Clear to auscultation bilaterally, no rales, rhonchi, wheezing. CARDIOVASCULAR: Regular rate and rhythm without murmurs, rubs, or gallops. Peripheral pulses 2+ and equal bilaterally. ABDOMINAL: Soft, nontender, nondistended, no hepatosplenomegaly. Normoactive BS. MUSCULOSKELETAL: Moves all extremities. Strength/ROM intact without gross deformities. SKIN: Warm, dry, normal color. No rashes. R hand two puncture wounds on top of DIP joint. No signs/symptoms of infection (no pus, no redness, no swelling, no red streaks). No oozing or bleeding. NEURO: A&O X3. Speech clear. Cranial nerves II-XII grossly intact. Steady gait. No ataxic movements. PSYCHIATRIC: Appropriate mood and affect. Normal interaction. <Farzana Mcclure, MOBILE APPLICATION TESTER - Last Filed: 10/21/24 19:00> Course Vital Signs Vital signs: Vital Signs Temperature 36.6 C 10/21/24 13:21 Pulse Rate 80 10/21/24 13:21 Respiratory Rate 16 10/21/24 13:21 Blood Pressure 144/66 H 10/21/24 13:21 Pulse Oximetry 98 10/21/24 13:21 Oxygen Delivery Room Air 10/21/24 13:21 Temperature 36.6 C 10/21/24 13:21 Pulse Rate 80 10/21/24 13:21 Respiratory Rate 16 10/21/24 13:21 Blood Pressure 144/66 H 10/21/24 13:21 Pulse Oximetry 98 10/21/24 13:21 Oxygen Delivery Room Air 10/21/24 13:21 <Mahnaz Chou, MOBILE APPLICATION TESTER - Last Filed: 10/21/24 15:16> Vital Signs Temperature 36.6 C 10/21/24 13:21 Pulse Rate 80 10/21/24 13:21 Respiratory Rate 16 10/21/24 13:21 Blood Pressure 144/66 H 10/21/24 13:21 Pulse Oximetry 98 10/21/24 13:21 Oxygen Delivery Room Air 10/21/24 13:21 Temperature 36.6 C 10/21/24 13:21 Pulse Rate 80 10/21/24 13:21 Respiratory Rate 16 10/21/24 13:21 Blood Pressure 144/66 H 10/21/24 13:21 Pulse Oximetry 98 10/21/24 13:21 Oxygen Delivery Room Air 10/21/24 13:21 <Farzana Mcclure APRN - Last Filed: 10/21/24 19:00> Medical Decision Making MDM Narrative Medical decision making narrative: Labs Ordered: None necessary Imaging Ordered: Patient offered an x-ray on her R hand to ensure there were no remaining pieces in her skin, but she declined. Medications Ordered: Tdap IM Diagnosis: Right hand puncture wound Patient Education/Shared MDM: Upon examination, patient's right hand puncture wound are unimpressive. There are no signs/symptoms of infection at this time. Extensive education was given to patient regarding the benefits and risks of opening the skin to remove the splinter verses allowing the splinter to and her work its way on its own. Patient reports ?I'll just have one of my friends dig it out because I have been waiting in the ER so long. She was strongly advised not to take this action. Patient was given education regarding how to care for her wound as an outpatient. She was advised to clean the wound with soap and water, then place Mupirocin ointment to the site twice a day. Pt should keep the area covered with a band-aid. She was given strict return precautions. Patient verbalized understanding and is in agreement with plan, although she is more focused on getting home at this time. All vital signs stable at time of discharge. All questions answered. <Farzana Mcclure, MOBILE APPLICATION TESTER - Last Filed: 10/21/24 19:00> Differential Diagnosis Differential Diagnosis: Right infected DIP joint, right hand skin infection, puncture wound <Farzana Mcclure APRN - Last Filed: 10/21/24 19:00> Vital Signs Vital Signs: Vital Signs Temperature 36.6 C 10/21/24 13:21 Pulse Rate 80 10/21/24 13:21 Respiratory Rate 16 10/21/24 13:21 Blood Pressure 144/66 H 10/21/24 13:21 Pulse Oximetry 98 10/21/24 13:21 Oxygen Delivery Room Air 10/21/24 13:21 Temperature 36.6 C 10/21/24 13:21 Pulse Rate 80 10/21/24 13:21 Respiratory Rate 16 10/21/24 13:21 Blood Pressure 144/66 H 10/21/24 13:21 Pulse Oximetry 98 10/21/24 13:21 Oxygen Delivery Room Air 10/21/24 13:21 <Mahnaz Chou, MOBILE APPLICATION TESTER - Last Filed: 10/21/24 15:16> Vital Signs Temperature 36.6 C 10/21/24 13:21 Pulse Rate 80 10/21/24 13:21 Respiratory Rate 16 10/21/24 13:21 Blood Pressure 144/66 H 10/21/24 13:21 Pulse Oximetry 98 10/21/24 13:21 Oxygen Delivery Room Air 10/21/24 13:21 Temperature 36.6 C 10/21/24 13:21 Pulse Rate 80 10/21/24 13:21 Respiratory Rate 16 10/21/24 13:21 Blood Pressure 144/66 H 10/21/24 13:21 Pulse Oximetry 98 10/21/24 13:21 Oxygen Delivery Room Air 10/21/24 13:21 <Farzana Mcclure, MOBILE APPLICATION TESTER - Last Filed: 10/21/24 19:00> Discharge Plan Discharge Clinical Impression: Puncture wound of right hand with foreign body <Mahnaz Chou, MOBILE APPLICATION TESTER - Last Filed: 10/21/24 15:16> Patient Disposition: Home, Self-Care <Mahnaz Chou, MOBILE APPLICATION TESTER - Last Filed: 10/21/24 15:16> Condition: Stable <Mahnaz Chou, MOBILE APPLICATION TESTER - Last Filed: 10/21/24 15:16> Instructions: Antibiotic Form, Puncture Wound (ED) <Mahnaz Cao January, MOBILE APPLICATION TESTER - Last Filed: 10/21/24 15:16> Additional Instructions: Please return to the ER with an worsening symptoms. Follow-up with primary care provider in the next 2-3 days. Use antibiotic ointment as prescribed. <Mahnaz Chou, MOBILE APPLICATION TESTER - Last Filed: 10/21/24 15:16> Patient Language: Cypriot <Mahnaz Cao January, MOBILE APPLICATION TESTER - Last Filed: 10/21/24 15:16> Prescriptions: New mupirocin [Centany] 2 % ointment 1 applic topical BID Qty: 22 0RF No Action atorvastatin 40 mg Tablet 80 mg PO DAILY 30 Days Qty: 60 3RF clopidogrel 75 mg Tablet 75 mg PO QAM 30 Days Qty: 30 11RF spironolactone 25 mg Tablet 25 mg PO QAM 30 Days Qty: 30 3RF carvedilol [Coreg] 3.125 mg Tablet 3.125 mg PO Q12HR 30 Days Qty: 60 3RF aspirin [Children's Aspirin] 81 mg Tablet,Chewable 81 mg PO DAILY@0800 30 Days Qty: 30 3RF losartan 25 mg tablet 12.5 mg PO DAILY Qty: 15 3RF pantoprazole 40 mg tablet,delayed release (DR/EC) 40 mg PO HS Qty: 30 3RF <Mahnaz Chou APRN - Last Filed: 10/21/24 15:16> Follow-up/Referrals: PHYSICIAN,RIBBON WEAVER [Non-Staff] - <Mahnaz Chou APRN - Last Filed: 10/21/24 15:16> Time of Disposition: 18:57 <Mahnaz Chou APRN - Last Filed: 10/21/24 15:16> 18:57 <Farzana Mcclure APRN - Last Filed: 10/21/24 19:00>
--- OUTSIDE RECORDS SUMMARY | 2024-10-21 15:51 | XMS_ITS | Continuity of Care Document ---
Author Organization [facility] Address [address] [facility] [address] [place] [address] Phone Care Team Providers Care Clothing Sorter Name Role Phone Mayra Lorenzo Unavailable Unavailable Advance Directives Directive Yes / No Effective Date File Name No Information Encounters Encounter Description Practice Location Reason(s) For Visit Diagnoses Date Provider Providers Copied on Encounter [facility], [id number] [place] [address] [address], [place], [place], [id number], tel:[phone] [facility] No Information Sep-0 1-200 5 Maura Nunez. [address] , [address], [place], [address], [place]. tel:[phone] Family History Family Member Type Diagnosis Age [...]
[2024-10-21] MEDS: TETANUS,DIPHTHERIA,AC PERTUSSIS ADULT (0.5 ML) BOOSTRIX IM (16:47)
== END 2024-10-21 19:05 | disposition home or self-care (01) ==
PROVIDERS: Emergency Provider Registered Nurse
DX: S61.431A Puncture wound without foreign body of right hand, initial encounter (principal); W45.8XXA Other foreign body or object entering through skin, initial encounter; W27.8XXA Contact with other nonpowered hand tool, initial encounter; Z23 Encounter for immunization
CPT/HCPCS: 90471; 90715; 99283